=== PATIENT | female | born 2000 | race Two or more races ===

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

== ENCOUNTER 2024-02-13 10:31 | Emergency (ER) | payer OTHER ==
[~2024-02-13] VITALS: Ht 160 cm; Wt 49.9 kg
[~2024-02-13 10:31] MED LIST: COLACE100 MG PO; IBU600 MG PO; IRON PO; IRON236 MG PO; PRENATAL + DHA1 EAC1 PO; PRENATAL PO; SIMETHICONE125 M1 PO
[2024-02-13] MEDS ORDERED: KETOROLAC TROMETHAMINE 60 MG VIAL IM STA (12:24)
== END 2024-02-13 15:46 | disposition home or self-care (01) ==
LOC: ER 10:33
DX: B34.9 Viral infection, unspecified (principal); Z20.822 Contact with and (suspected) exposure to COVID-19

== ENCOUNTER 2024-06-08 10:25 | Emergency (ER) | payer OTHER ==
[~2024-06-08] VITALS: Ht 160 cm; Wt 49.9 kg
[2024-06-08 12:08] LABS: HEMOGLOBIN 11.8 g/dL (12.0-15.00); MEAN CELL VOLUME 70.6 fL (80.00-100.00); MEAN CORPUSCULAR HEMOGLOBIN 23.1 pg (27.00-32.0); MEAN CORPUSCULAR HGB CONC 32.8 g/dl (32.0-36.0); PLATELET COUNT 214 K/uL (150-450); RED CELL DISTRIBUTION WIDTH 19.4 % (11.5-14.5)
[2024-06-08 12:22] LABS: CALCIUM 8.9 mg/dL (8.5-10.1); CREATININE SERUM 0.49 mg/dL (0.55-1.02); GFR 157.92; POTASSIUM 3.86 mEq/L (3.5-5.1)
[2024-06-08 13:02] LABS: PH,URINE 6.5 (5.0-8.0); URINE APPEARANCE Cloudy; URINE BILIRRUBIN Negative (NEGATIVE); URINE BLOOD Negative; URINE COLOR Yellow; URINE GLUCOSE Negative (NEGATIVE); URINE KETONE Negative (NEGATIVE); URINE LEUKOCYTE Large; URINE NITRATE Negative; URINE PROTEIN Negative (NEGATIVE); URINE UROBILINOGEN 0.2 E.U./dl
[2024-06-08 13:06] LABS: URINE BACTERIA 2220.2 uL (0.0-1933); URINE EPITHELIAL CELLS 53.8 uL (0.0-38.8); URINE RBC 17.6 uL (0.0-20.8); URINE WBC 308.9 uL (0.0-23.2)
[2024-06-08 13:13] LABS: URINE CAST 0.29 uL (0.0-1.40)
== END 2024-06-08 16:17 | disposition home or self-care (01) ==
LOC: ER 10:28
PROVIDERS: Emergency Medicine
DX: O20.8 Other hemorrhage in early pregnancy (principal); Z3A.01 Less than 8 weeks gestation of pregnancy

== ENCOUNTER 2024-07-21 10:25 | Outpatient (CLI) | payer OTHER | END 2024-07-21 10:28 | disposition home or self-care (01) | LOC: PRENATAL 10:25 | PROVIDERS: ATTEND Obstetrics & Gynecology Maternal & Fetal Medicine | DX: Z76.1 Encounter for health supervision and care of foundling (principal) ==

== ENCOUNTER 2024-08-31 15:18 | Outpatient (CLI) | payer OTHER | END 2024-08-31 15:20 | disposition home or self-care (01) | LOC: PRENATAL 15:18 | PROVIDERS: ATTEND Obstetrics & Gynecology Maternal & Fetal Medicine | DX: O44.00 Complete placenta previa NOS or without hemorrhage, unspecified trimester (principal); Z14.8 Genetic carrier of other disease; O34.219 Maternal care for unspecified type scar from previous cesarean delivery; Z3A.19 19 weeks gestation of pregnancy ==

== ENCOUNTER 2024-10-09 10:27 | Outpatient (CLI) | payer OTHER ==
[2024-10-09 09:43] VITALS: BP 110/66
[2024-10-09] MEDS ORDERED: RINGERS SOLUTION,LACTATED 1,000 ML IV SCH (10:45)
[2024-10-09] MEDS ORDERED: PRENATABS RX T1 EACH PO (10:46)
[2024-10-09] MEDS ORDERED: METROnidazole 500 MG TABLET PO SCH (10:56)
[2024-10-09] MEDS ORDERED: TERCONAZOLE 20 GM TUBE VAG SCH (10:59)
[2024-10-09] MEDS ORDERED: HYDROCORTISONE 1% 29 G TUBE TOP SCH (11:00)
[2024-10-09 11:16] LABS: BASO % 0.1 % (0.1-1.2); EOS # 0.02 (0.04-0.54); EOS % 0.3 % (0.7-7.0); HEMATOCRIT 27.3 % (34.1-44.9); LYMPH # 1.54 (1.18-3.74); LYMPH % 20.8 % (19.3-53.1); MEAN CORPUSCULAR HEMOGLOBIN 23.5 pg (25.6-32.2); MONO # 0.53 (0.24-0.82); MONO % 7.1 % (4.7-12.5); NEUT # 5.21 (1.56-6.13); NEUT % 70.2 % (34.0-71.1); PLATELET COUNT 159 K/uL (163-369); RED BLOOD COUNT 3.66 M/uL (3.93-5.22); RED CELL DISTRIBUTION WIDTH 15.3 % (11.6-14.4)
[2024-10-09 11:19] LABS: PH,URINE 7.5 (5.0-8.0); URINE APPEARANCE Clear; URINE BILIRRUBIN Negative (NEGATIVE); URINE BLOOD Negative; URINE COLOR Yellow; URINE KETONE Negative (NEGATIVE); URINE LEUKOCYTE Negative; URINE NITRATE Negative; URINE PROTEIN Negative (NEGATIVE)
[2024-10-09 11:20] LABS: URINE BACTERIA 20.8 uL (0.0-1933); URINE WBC 2.9 uL (0.0-23.2)
[2024-10-09 11:25] VITALS: BP 122/70
[2024-10-09 11:25] LABS: URINE EPITHELIAL CELLS 1.1 uL (0.0-38.8); URINE GLUCOSE 100 MG/DL (NEGATIVE); URINE RBC 1.3 uL (0.0-20.8)
[2024-10-09 11:34] LABS: HEMOGLOBIN 8.6 g/dL (11.2-15.7)
[2024-10-09 11:38] LABS: INR 0.94; PROTHROMBIN TIME 10.3 SECONDS (9.0-11.5)
[2024-10-09 11:47] LABS: ALBUMIN 2.9 gm/dL (3.4-5.0); BILIRUBIN TOTAL 0.5 mg/dL (0.3-1.2); CALCIUM 8.7 mg/dL (8.5-10.1); CREATININE SERUM 0.45 mg/dL (0.55-1.02); GFR 172.66; GLOBULINA 3.8 G/DL (2.4-3.5); POTASSIUM 3.82 mEq/L (3.5-5.1); TOTAL PROTEIN 6.7 gm/dL (6.4-8.2)
[2024-10-09 15:41] VITALS: BP 114/73
[2024-10-09 19:15] VITALS: BP 111/67
[2024-10-09 23:45] VITALS: BP 101/63
[2024-10-10 04:00] VITALS: BP 94/54
[2024-10-10 07:47] VITALS: BP 111/67
[2024-10-10] MEDS ORDERED: METRONIDAZOLE500 MG PO (12:46)
[2024-10-10 14:00] VITALS: BP 100/64
== END 2024-10-10 02:02 | disposition home or self-care (01) ==
LOC: OBS/DEL 10:27
PROVIDERS: ATTEND Obstetrics & Gynecology
DX: O26.892 Other specified pregnancy related conditions, second trimester (principal); B37.9 Candidiasis, unspecified; Z3A.24 24 weeks gestation of pregnancy

== ENCOUNTER → 2024-11-02 10:56 | Outpatient (CLI) | payer OTHER ==
[~2024-11-02 10:56] MED LIST changes: +METRONIDAZOLE500 MG PO; +PRENATABS RX T1 EACH PO
== END | disposition home or self-care (01) ==
LOC: PRENATAL 10:56
PROVIDERS: ATTEND Obstetrics & Gynecology Maternal & Fetal Medicine
DX: O44.00 Complete placenta previa NOS or without hemorrhage, unspecified trimester (principal); Z14.8 Genetic carrier of other disease; O34.219 Maternal care for unspecified type scar from previous cesarean delivery; Z3A.28 28 weeks gestation of pregnancy

== ENCOUNTER 2024-12-03 16:09 | Inpatient (IN) | payer OTHER ==
[~2024-12-03] VITALS: Ht 160 cm; Wt 65.3 kg
[2024-12-03 15:27] VITALS: BP 113/69
[2024-12-03] MEDS ORDERED: IRON325 MG PO (16:29)
[2024-12-03] MEDS ORDERED: B12 ACTIVE1000 MCG PO (16:29)
[2024-12-03] MEDS ORDERED: RINGERS SOLUTION,LACTATED 1,000 ML IV SCH (16:45)
[2024-12-03 17:19] LABS: BASO % 0.1 % (0.1-1.2); EOS # 0.01 (0.04-0.54); EOS % 0.1 % (0.7-7.0); LYMPH # 1.36 (1.18-3.74); LYMPH % 18.3 % (19.3-53.1); MEAN PLATELET VOLUME 11.10 fl (9.4-12.4); MONO # 0.53 (0.24-0.82); MONO % 7.1 % (4.7-12.5); NEUT # 5.42 (1.56-6.13); NEUT % 73.2 % (34.0-71.1); RED CELL DISTRIBUTION WIDTH 18.2 % (11.6-14.4)
[2024-12-03 17:22] VITALS: BP 113/69
[2024-12-03 17:23] LABS: URINE APPEARANCE Clear; URINE BILIRRUBIN Negative (NEGATIVE); URINE BLOOD Negative; URINE COLOR Yellow; URINE KETONE Negative (NEGATIVE); URINE LEUKOCYTE Negative; URINE NITRATE Negative; URINE PROTEIN Negative (NEGATIVE); URINE UROBILINOGEN 1.0 E.U./dl
[2024-12-03 17:28] LABS: URINE BACTERIA 171.5 uL (0.0-1933); URINE EPITHELIAL CELLS 4.7 uL (0.0-38.8); URINE WBC 3.6 uL (0.0-23.2)
[2024-12-03 17:41] LABS: INR 0.95
[2024-12-03 17:47] LABS: URINE CAST 0.00 uL (0.0-1.40); URINE GLUCOSE 250 MG/DL (NEGATIVE); URINE RBC 0.7 uL (0.0-20.8)
[2024-12-03 17:51] LABS: ALT/SGPT 17.0 U/L (12-78); AST/SGOT 20.0 U/L (15-37); BILIRUBIN TOTAL 0.64 mg/dL (0.3-1.2); BUN CREA RATIO 9.0 (7.0-25.0); CREATININE SERUM 0.43 mg/dL (0.55-1.02); GFR 181.96; GLOBULINA 3.4 G/DL (2.4-3.5); GLUCOSE FASTING 67.0 mg/dL (65-100); OSMOLALITY SERUM 275.0 MOSM/KG (275-295)
[2024-12-03 20:25] VITALS: BP 109/66
[2024-12-03] MEDS ORDERED: ACETAMINOPHEN 500 MG GEL..CAP PO ONE (20:34)
[2024-12-03] MEDS ORDERED: ACETAMINOPHEN 500 MG GEL..CAP PO PRN (21:00)
[2024-12-03 23:33] VITALS: BP 124/78
[2024-12-04 03:38] VITALS: BP 99/61
[2024-12-04 07:11] VITALS: BP 114/75
[2024-12-04 11:21] VITALS: BP 109/68; O2SAT 100
[2024-12-04 15:12] VITALS: BP 117/70
[2024-12-04 19:02] VITALS: BP 108/70
[2024-12-05] VITALS: BP 122/73
[2024-12-05 02:16] LABS: BASO % 0.3 % (0.1-1.2); EOS # 0.04 (0.04-0.54); EOS % 0.6 % (0.7-7.0); LYMPH # 1.78 (1.18-3.74); LYMPH % 28.4 % (19.3-53.1); MEAN PLATELET VOLUME 10.60 fl (9.4-12.4); MONO # 0.53 (0.24-0.82); MONO % 8.5 % (4.7-12.5); NEUT # 3.85 (1.56-6.13); NEUT % 61.4 % (34.0-71.1); RED CELL DISTRIBUTION WIDTH 20.2 % (11.6-14.4)
[2024-12-05 08:32] VITALS: BP 106/70
[2024-12-05 16:00] VITALS: BP 113/74
== END 2024-12-05 16:24 | disposition home or self-care (01) | DRG 833 ==
LOC: OBS/DEL 16:09 → LDR 17:27 → OB/GYN 12-04 14:57
PROVIDERS: Student in an Organized Health Care Education/Training Program; ADMIT Obstetrics & Gynecology; ATTEND Obstetrics & Gynecology
PROC: 30233N1 Transfusion of Nonautologous Red Blood Cells into Peripheral Vein, Percutaneous Approach (ICD-10-PCS; principal; 2024-12-03)
PROC: 4A1HXCZ Monitoring of Products of Conception, Cardiac Rate, External Approach (ICD-10-PCS; 2024-12-03)
DX: O99.013 Anemia complicating pregnancy, third trimester (principal); D64.9 Anemia, unspecified; Z3A.32 32 weeks gestation of pregnancy

== ENCOUNTER 2024-12-13 08:57 | Outpatient (CLI) | payer OTHER ==
[~2024-12-13 08:57] MED LIST changes: +B12 ACTIVE1000 MCG PO; +IRON325 MG PO
== END 2024-12-13 08:59 | disposition home or self-care (01) ==
LOC: PRENATAL 08:57
PROVIDERS: ATTEND Obstetrics & Gynecology Maternal & Fetal Medicine
DX: O26.849 Uterine size-date discrepancy, unspecified trimester (principal); O36.8199 Decreased fetal movements, unspecified trimester, other fetus; Z14.8 Genetic carrier of other disease; O34.219 Maternal care for unspecified type scar from previous cesarean delivery; Z3A.34 34 weeks gestation of pregnancy

== ENCOUNTER 2024-12-26 14:45 | Outpatient (CLI) | payer OTHER ==
[~2024-12-26] VITALS: Ht 160 cm; Wt 66.2 kg
[2024-12-26 14:00] VITALS: BP 125/72; O2SAT 100
[2024-12-26] MEDS ORDERED: RINGERS SOLUTION,LACTATED 1,000 ML IV SCH (15:00)
[2024-12-26 15:52] LABS: BASO % 0.2 % (0.1-1.2); EOS # 0.02 (0.04-0.54); EOS % 0.2 % (0.7-7.0); LYMPH # 1.22 (1.18-3.74); LYMPH % 15.1 % (19.3-53.1); MEAN PLATELET VOLUME 10.20 fl (9.4-12.4); MONO # 0.61 (0.24-0.82); MONO % 7.5 % (4.7-12.5); NEUT # 6.13 (1.56-6.13); NEUT % 75.8 % (34.0-71.1); URINE APPEARANCE Clear; URINE BILIRRUBIN Negative (NEGATIVE); URINE BLOOD Negative; URINE COLOR Dark Yellow; URINE GLUCOSE Negative (NEGATIVE); URINE KETONE Trace (NEGATIVE); URINE LEUKOCYTE Small; URINE NITRATE Negative; URINE PROTEIN Trace (NEGATIVE); URINE UROBILINOGEN 1.0 E.U./dl
[2024-12-26 15:55] LABS: URINE BACTERIA 2178.0 uL (0.0-1933); URINE EPITHELIAL CELLS 62.2 uL (0.0-38.8); URINE RBC 3.6 uL (0.0-20.8); URINE WBC 86.5 uL (0.0-23.2)
[2024-12-26 15:56] VITALS: BP 116/70
[2024-12-26 16:10] LABS: TYPE CELLS SQUAMOUS; URINE CAST 0.14 uL (0.0-1.40); URINE MUCUS MODERATE
[2024-12-26 16:18] LABS: RED CELL DISTRIBUTION WIDTH 29.1 % (11.6-14.4)
[2024-12-26] MEDS ORDERED: CEFAZOLIN SODIUM 1,000 MG VIAL ONE (16:18)
[2024-12-26] MEDS ORDERED: CEFAZOLIN SODIUM 1,000 MG VIAL IV NR (16:30)
[2024-12-26 17:39] VITALS: BP 116/70
== END 2024-12-26 21:25 | disposition home or self-care (01) ==
LOC: OBS/DEL 14:45
PROVIDERS: Obstetrics & Gynecology; ATTEND Obstetrics & Gynecology
DX: O26.893 Other specified pregnancy related conditions, third trimester (principal); O26.853 Spotting complicating pregnancy, third trimester; Z3A.35 35 weeks gestation of pregnancy